=== PATIENT | male | born 1950 | race Caucasian/White ===

== ENCOUNTER 2017-06-30 06:46 | Outpatient (CLI) | payer SELFPAY | END 2017-06-30 06:47 | disposition short-term general hospital (02) | LOC: EMS 06:46 | PROVIDERS: ATTEND Surgery | DX: R07.9 Chest pain, unspecified (principal) | CPT/HCPCS: A0425; A0427 ==

== ENCOUNTER 2018-02-07 07:11 | Day surgery (SDC) | payer MEDICARE, OTHER ==
[2018-02-07] MEDS ORDERED: BRIMONIDINE 0.2% OPHTH DROPS 5 ML ONE (07:24)
[2018-02-07] MEDS ORDERED: TIMOLOL 0.5% OPHTH DROPS ONE (07:25)
[2018-02-07] MEDS ORDERED: KETOROLAC 0.45% OPHTH DROPS ONE (07:35)
[2018-02-07] MEDS ORDERED: CYCLOPENTOLATE 1% OPHTH DROPS 2 ML ONE (07:36)
[2018-02-07] MEDS ORDERED: PHENYLEPHRINE 2.5% OPHTH 2 ML DROPS ONE (07:36)
[2018-02-07] MEDS ORDERED: PROPARACAINE 0.5% OPHTH DROPS 15 ML ONE (07:36)
[2018-02-07] MEDS ORDERED: PROPARACAINE 0.5% OPHTH DROPS 15 ML LEFTEYE ONE ×2 (07:45→09:07)
[2018-02-07] MEDS ORDERED: KETOROLAC 0.45% OPHTH DROPS LEFTEYE ONE (07:45)
[2018-02-07] MEDS ORDERED: CYCLOPENTOLATE 1% OPHTH DROPS 2 ML LEFTEYE ONE (07:45)
[2018-02-07] MEDS ORDERED: PHENYLEPHRINE 2.5% OPHTH 2 ML DROPS LEFTEYE ONE (07:45)
[2018-02-07] MEDS ORDERED: LACTATED RINGERS 500 ML IV ONE (08:09)
[2018-02-07] MEDS ORDERED: EPINEPHrine 1 MG/ML AMP IR ONE (09:04)
[2018-02-07] MEDS ORDERED: BRIMONIDINE 0.2% OPHTH DROPS 5 ML OPTH ONE (09:04)
[2018-02-07] MEDS ORDERED: TIMOLOL 0.5% OPHTH DROPS OPTH ONE (09:05)
[2018-02-07] MEDS ORDERED: CHONDR SULF/HYALURONATE SYRINGE IO ONE (09:05)
[2018-02-07] MEDS ORDERED: TRIAMCIN/MOXIFLOX/VANCO 1 ML VIAL IO ONE (09:06)
[2018-02-07] MEDS ORDERED: BSS/LIDOCAINE/EPINEPHRINE 1 ML SYRINGE IO ONE (09:06)
[2018-02-07] MEDS ORDERED: TRIAMCINOLONE PF 40 MG/ML VIAL IO ONE (09:38)
[2018-02-07] MEDS ORDERED: TRIAMCINOLONE PF 40 MG/ML VIAL ONE (09:42)
[2018-02-07] MEDS ORDERED: ACETYLCHOLINE 20 MG/2 ML KIT IO ONE (09:47)
[2018-02-07] MEDS ORDERED: CARBACHOL 0.01% 1.5 ML VIAL IO ONE (09:55)
[2018-02-07] MEDS ORDERED: fentaNYL 100 MCG/2 ML VIAL IVP ONE (10:00)
[2018-02-07] MEDS ORDERED: MIDAZOLAM 2 MG/2 ML VIAL IVP ONE (10:00)
[2018-02-07 10:38] VITALS: BP 126/73
--- NOTE | 2018-02-07 21:32 | OPERATIVE REPORT ---
DATE OF SERVICE: 02/07/2018 Physician: Flaquito Bryan MD PREOPERATIVE DIAGNOSIS: Visually significant cataract, left eye. This is his first cataract surgery. POSTOPERATIVE DIAGNOSIS: Visually significant cataract, left eye. This is his first cataract surgery. NAME OF PROCEDURE: Phacoemulsification with posterior chamber intraocular lens implant, left eye. SURGEON: Flaquito Bryan MD ANESTHESIA: Monitored anesthesia care. COMPLICATIONS: Unstable lens with apparent lack of posterior capsular support requiring IOL exchange with a 3-piece sulcus lens and also requiring unplanned anterior vitrectomy. OPERATIVE INDICATIONS: This is a 67-year-old man with progressive vision loss in the left eye due to 1 to 2+ nuclear sclerotic, 1+ cortical and central vacuolar cataract. Best corrected visual acuity was 20/40 with glare to 20/400 in the left eye. He was consented at length concerning the risks and benefits of cataract surgery, after which he expressed a desire to proceed with surgery. OPERATIVE PROCEDURE: The patient was taken into OR #3 and placed under monitored anesthesia care. A surgical timeout was conducted, confirming correct patient, correct procedure, and correct surgical site. He was placed under LenSx laser and his eye was docked to the laser interface. Laser performed the capsulotomy lens softening, phaco wound, and arcuate keratotomy incisions. He was then moved to the operating microscope and given topical anesthesia. He was prepped and draped in the usual sterile fashion. The eye was entered at the 6 and 3 o'clock positions. Intracameral Shugarcaine was injected into the anterior chamber, followed by Viscoat. The capsulorrhexis flap created by the LenSx laser was removed from the anterior chamber. The nucleus was hydrodissected and phacoemulsified. The cortex was evacuated using automated infusion and aspiration. Provisc was injected in the capsular bag, and a 15.5 diopter intraocular lens was inserted in the bag; however, upon I and A to remove the viscoelastic materials, the lens moved inferiorly, with only about half of it being seen in the pupil area, the rest of it being underneath the iris. It was determined that there must not be posterior capsular support, that the lens was in a hole in the capsule, although no hole or rupture in the posterior capsule was observed. It was elected to bring the 1-piece IOL up into the anterior chamber, remove it, and to replace it with a 3-piece intraocular sulcus lens as the anterior chamber appeared intact with a good rhexis. Of note, during the entire case, this patient was moving frequently but I'm unsure if this contributed to the lack of capsular support for the IOL. In retrospect I probably should have placed the patient under general anesthesia. Once the first intraocular lens had been brought up into the anterior chamber, a new 3-piece intraocular lens was injected into the sulcus and centered. However, there was traction on the iris and nasal displacement of the IOL. Microforceps and microscissors were used to cut the first IOL into 3 pieces and these were removed through the 2.6 mm phaco wound. Once the first IOL was removed from the eye, attention was drawn to a large band of vitreous coming along the temporal side of the pupil into the wound, displacing the second IOL in the sulcus. Extensive wet and dry anterior vitrectomy was performed with an anterior vitrectomy, Weck-cels sponges , and Vannas scissors. Once the vitreous was no longer pushing on the intraocular lens, and it was well centered, Miochol was placed in the eye to bring the pupil down. There was no peaking. Viscoelastic material was removed from the anterior chamber and a single 10-0 nylon was placed across the wound. The IOL appeared to be in good position. Approximately 0.8 mL of a mixture of triamcinolone and moxifloxacin was injected subconjunctivally in the superior quadrant for infection and inflammation prophylaxis. The eye was inflated to physiologic pressure using balanced salt solution and was found to bevwatertight. The patient was taken from the operating room in good condition, informed of the complication, and given postoperative instructions. TD: 02/07/2018 21:30 HARRIET
== END 2018-02-07 07:12 | disposition home or self-care (01) ==
LOC: SDS 07:11
PROVIDERS: ATTEND Ophthalmology
PROC: 08RK3JZ Replacement of Left Lens with Synthetic Substitute, Percutaneous Approach (ICD-10-PCS; principal; 2018-02-07 08:30)
DX: H25.812 Combined forms of age-related cataract, left eye (principal); I25.10 Atherosclerotic heart disease of native coronary artery without angina pectoris; I10 Essential (primary) hypertension; E11.9 Type 2 diabetes mellitus without complications; I25.2 Old myocardial infarction; K21.9 Gastro-esophageal reflux disease without esophagitis
CPT/HCPCS: 66984; A9270; J3300; J3490; V2632